=== PATIENT | male | born 1955 | race Caucasian/White ===

== ENCOUNTER 2018-02-01 16:35 | Emergency (ER) | payer OTHER ==
[2018-02-01 17:48] VITALS: BP 125/74
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
== END 2018-02-01 18:44 | disposition home or self-care (01) ==
LOC: UCCORT 16:35
DX: J10.1 Influenza due to other identified influenza virus with other respiratory manifestations (principal); Z88.6 Allergy status to analgesic agent; Z91.048 Other nonmedicinal substance allergy status
CPT/HCPCS: 87502; 99212; G0463